=== PATIENT | female | born 1965 | race Two or more races ===

== ENCOUNTER 2016-06-19 16:17 | Emergency (ER) | payer OTHER ==
[2016-06-19 18:40] LABS: ABSOLUTE NEUTROPHIL COUNT 2.9 K/mm3 (1.8-7.7); BASO # 0.1 K/mm3 (0.0-0.2); BASO % 0.9 % (0.2-1.0); EOS # 0.1 (0.0-0.5); EOS % 2.5 % (0.9-2.9); HEMATOCRIT 43.4 % (37.0-47.0); HEMOGLOBIN 14.6 gm/l (12.0-16.0); IMM NEUT% 0.2 % (0-1); LYMPH # 2.1 (1.0-4.8); LYMPH % 37.2 % (15-45); MEAN CELL VOLUME 92.3 fl (81.0-99.0); MEAN CORPUSCULAR HEMOGLOBIN 31.1 pg (27.0-31.0); MEAN CORPUSCULAR HGB CONC 33.6 g/dl (33.0-37.0); MONO # 0.4 (0.0-0.8); NEUT % 52.2 % (43-75); PLATELET COUNT 178 K/mm3 (130-400); RED CELL DISTRIBUTION WIDTH 12.2 % (11.5-14.5)
[2016-06-19 19:03] LABS: ALB/GLOB RATIO 1.4 (>1.0); ALBUMIN 4.3 gm/dL (3.5-5.7); CALCIUM 9.2 mg/dL (8.6-10.3)
[2016-06-19] MEDS ORDERED: MAALOX/LIDO2%VISC/SIMETHICONE 40 ML BOT ONE (19:29)
[2016-06-19] MEDS ORDERED: PANTOPRAZOLE SODIUM 40 MG VIAL IV ONE (19:30)
--- NOTE | 2016-06-19 19:37 | US ---
ABDOMINAL-LIMITED COMPARISON: None HISTORY: Right upper quadrant pain since 0300 on 06/19/2016. FINDINGS: Gall bladder: Normal length 8.3 cm and wall thickness 1.6 mm. No stones or sludge. Common hepatic duct: 1.3 mm. Common bile duct: 2.8 mm. IMPRESSION: 1. Normal study. The report was sent to the emergency department medical record system 06/19/2016 at 19:37
== END 2016-06-19 19:55 | disposition home or self-care (01) ==
LOC: ED 16:17
DX: R10.11 Right upper quadrant pain (principal); R11.0 Nausea
CPT/HCPCS: 83690; 82150; 85025; 80053; 76705; 99284; 96374; 99283; A9270; C9113